=== PATIENT | male | born 1950 | race Caucasian/White ===

== ENCOUNTER → 2017-06-23 | Outpatient (CLI) | payer OTHER ==
--- NOTE | 2017-06-23 16:44 | CONS ---
CONSULTATION This is a 66-year-old male patient, morbidly obese, presenting with concerns of sleep apnea. In fact, the patient has typical features to suggest HANNAH including loud snoring, witnessed apneas, and chronic hypersomnia and sleepiness. He is waking up gasping for air. He is unable to maintain sleep and for that reason, he has been sleeping in a sitting up position. This involved a concern for obstructive sleep apnea. The patient was referred to me. The patient is morbidly obese. He carries a BMI 52.9. He is very much sleepy and tired during the day. He is considered to be at risk of falling asleep while driving knowing that he has done it in the past. The patient wakes up, very sleepy and he takes on off naps during the day. He has been having some issues also with increased lower extremity edema. His current [place] Score is at 19. PAST MEDICAL HISTORY: 1. Obesity. 2. Diabetes. 3. Coronary artery disease. 4. Coronary artery bypass surgery. 5. Hyperlipidemia. 6. Hypothyroidism. SURGICAL HISTORY: Includes coronary bypass surgery. Bilateral knee replacement. Right shoulder surgery, carpal tunnel release. DRUG ALLERGIES: Not known. OUTPATIENT MEDICATION LIST: Includes aspirin, atorvastatin 20 mg p.o. daily. BuSpar 10 mg twice a day, Coreg 6.25 mg once a day. Lasix 20 mg p.o. daily. Lantus insulin. Along with Humalog, Synthroid 200 mcg p.o. daily and 25 mcg p.o. daily , Ativan 1 mg as needed. Losartan 50 mg p.o. daily and metformin 1000 mg p.o. twice a day. SOCIAL HISTORY: Nonsmoker, no history of alcohol, no history of IV drugs. FAMILY HISTORY: Negative for sleep apnea or any other form of sleep breathing disorder. REVIEW OF SYSTEMS: 12-point review of system was done. Positive findings are mentioned above in the history of present illness. He has been complaining of some increased lower extremity edema. No angina. The patient has an upcoming cardiac catheterization to be done by to re-evaluate his coronary artery disease. He goes to bed around 11:00 p.m. and wakes up 7:00 am in the morning, very much sleepy and non refreshed upon waking up. He wakes up constantly in the middle of the night. His weight is up. He has gained approximately 60 pounds over the past 10 years, 25 pounds over the past 1 year. No dreams, no hallucinations, no cataplexy. PHYSICAL EXAMINATION: BP is 114/62, pulse 78, respirations 16, temp 97.6, saturation 95% on room air. Weight is 338. Height is 5 feet 7 inches, neck size 19 inches and BMI 52.9. GENERAL APPEARANCE: Obese, calm, comfortable. HEENT: Head is atraumatic, normocephalic. Mallampati class Iv. Short neck, crowding of posterior pharynx. There is no goiter or neck masses. LUNGS: Diminished breath sounds; otherwise clear. HEART: Sounds are distant. Regular rhythm. Normal S1, S2. No S3, S4. No murmurs. ABDOMEN: Obese soft, nontender. No organomegaly. EXTREMITIES: Trace edema. There is no cyanosis or clubbing. NEUROLOGIC: Alert and oriented x3, no focal neurological deficit. PSYCHIATRIC: Negative for anxiety or depression at this point. IMPRESSION: 1. Obstructive sleep apnea. There is a high suspicion for HANNAH based on the symptoms and anatomic features. The patient has snoring, has witnessed apneas, has chronic hypersomnia sleepiness with an [place] score of 19 with a BMI of 52.9. 2. Obesity with a BMI of 52.9. 3. Coronary artery disease, previous bypass surgery. 4. Diabetes mellitus. 5. Hyperlipidemia. 6. Hypothyroidism. PLAN: Overall suspicion is very high for HANNAH. I will proceed with a polysomnogram and treatment is to follow accordingly. Encourage weight loss. Tight control of cardiovascular risk factors. Implement good sleep hygiene measures. Will continue to follow. MMODL / IJN: [id number] /
== END | disposition home or self-care (01) ==
LOC: SLEEP 13:03
PROVIDERS: ATTEND Internal Medicine Critical Care Medicine
DX: G47.33 Obstructive sleep apnea (adult) (pediatric) (principal); G47.10 Hypersomnia, unspecified; I25.10 Atherosclerotic heart disease of native coronary artery without angina pectoris; E11.9 Type 2 diabetes mellitus without complications; E78.5 Hyperlipidemia, unspecified; E03.9 Hypothyroidism, unspecified; E66.9 Obesity, unspecified; Z68.43 Body mass index [BMI] 50.0-59.9, adult; Z79.82 Long term (current) use of aspirin; Z79.02 Long term (current) use of antithrombotics/antiplatelets; Z79.899 Other long term (current) drug therapy; Z79.4 Long term (current) use of insulin; Z95.1 Presence of aortocoronary bypass graft
CPT/HCPCS: 99211

== ENCOUNTER → 2018-03-02 | Outpatient (CLI) | payer MEDICARE, BC ==
[2018-03-02 13:41] LABS: Basophils # (A) 0.1 k/uL (0-0.2); Basophils % (A) 1 %; Eosinophils # (A) 0.3 k/uL (0-0.7); Eosinophils % (A) 4 %; HGB 13.4 gm/dL (13.0-17.5); Lymphocytes # (A) 1.9 k/uL (1.0-4.8); Lymphocytes % (A) 22 %; MCH 28.8 pg (25.0-35.0); MCHC 31.9 g/dL (31.0-37.0); MCV 90.5 fL (80.0-100.0); Mean Platelet Volume 7.9; Monocytes # (A) 0.8 k/uL (0-1.0); Monocytes % (A) 10 %; Neutrophils # (A) 5.1 k/uL (1.3-7.7); Neutrophils % (A) 60 %; Platelet Count 234 k/uL (150-450); RBC 4.64 m/uL (4.30-5.90); RDW 13.3 % (11.5-15.5); WBC 8.5 k/uL (3.8-10.6)
[2018-03-02 13:56] LABS: Potassium 5.6 mmol/L (3.5-5.1)
== END | disposition home or self-care (01) ==
LOC: LABPAT 13:26
PROVIDERS: ATTEND Orthopaedic Surgery
DX: Z01.812 Encounter for preprocedural laboratory examination (principal); G56.02 Carpal tunnel syndrome, left upper limb
CPT/HCPCS: 36415; 80051; 85025

== ENCOUNTER → 2020-07-24 | Outpatient (CLI) | payer MEDICARE, BC | END | disposition home or self-care (01) | LOC: CPPFTMAIN 08:45 | PROVIDERS: ATTEND Internal Medicine Critical Care Medicine | DX: R94.2 Abnormal results of pulmonary function studies (principal); R06.09 Other forms of dyspnea | CPT/HCPCS: 94060; 94726; 94729 ==